=== PATIENT | male | born 1985 | race Caucasian/White ===

== ENCOUNTER 2019-08-17 09:08 | Emergency (ER) | payer MEDICAID ==
[~2019-08-17] VITALS: Ht 170.2 cm; Wt 76.2 kg
[2019-08-17 09:19] VITALS: Ht 170.2 cm; Wt 76.2 kg
[2019-08-17 09:55] VITALS: BP 121/79
== END 2019-08-17 09:55 | disposition home or self-care (01) ==
LOC: ED 09:08
DX: R00.2 Palpitations (principal); R45.1 Restlessness and agitation; F15.10 Other stimulant abuse, uncomplicated

== ENCOUNTER 2019-08-27 17:52 | Emergency (ER) | payer MEDICAID ==
[~2019-08-27] VITALS: Ht 170.2 cm; Wt 77.1 kg
[2019-08-27 18:08] VITALS: Ht 170.2 cm; Wt 77.1 kg
[2019-08-27 19:47] VITALS: BP 132/91
== END 2019-08-27 19:47 | disposition home or self-care (01) ==
LOC: ED 17:52
DX: J10.1 Influenza due to other identified influenza virus with other respiratory manifestations (principal)
CPT/HCPCS: 87804

== ENCOUNTER 2019-09-25 14:39 | Emergency (ER) | payer MEDICAID ==
[~2019-09-25] VITALS: Ht 170.2 cm; Wt 74.4 kg
[2019-09-25 14:49] VITALS: Ht 170.2 cm; Wt 74.4 kg
[2019-09-25 15:46] VITALS: BP 124/70
== END 2019-09-25 17:22 | disposition home or self-care (01) ==
LOC: ED 14:39
DX: F41.9 Anxiety disorder, unspecified (principal); R06.02 Shortness of breath; R20.0 Anesthesia of skin; R20.2 Paresthesia of skin

== ENCOUNTER 2019-10-03 12:07 | Emergency (ER) | payer MEDICAID ==
[~2019-10-03] VITALS: Ht 170.2 cm; Wt 73.5 kg
[2019-10-03 12:10] VITALS: Ht 170.2 cm; Wt 73.5 kg
[2019-10-03 14:34] VITALS: BP 115/72
== END 2019-10-03 14:34 | disposition home or self-care (01) ==
LOC: ED 12:07
DX: F41.9 Anxiety disorder, unspecified (principal); R20.2 Paresthesia of skin; R45.0 Nervousness

== ENCOUNTER 2020-02-02 22:34 | Emergency (ER) | payer MEDICAID ==
[~2020-02-02] VITALS: Ht 170.2 cm; Wt 80.7 kg
[2020-02-02 22:46] VITALS: Ht 170.2 cm; Wt 80.7 kg
[2020-02-02 22:50] VITALS: BP 118/84
== END 2020-02-02 22:50 | disposition left against medical advice (07) ==
LOC: ED 22:34
DX: Z53.21 Procedure and treatment not carried out due to patient leaving prior to being seen by health care provider (principal)